=== PATIENT | male | born 1970 | race Caucasian/White ===

== ENCOUNTER 2020-11-19 14:07 | Emergency (ER) | payer OTHER ==
[~2020-11-19] VITALS: Ht 177.8 cm; Wt 79.4 kg
[2020-11-19] MEDS ORDERED: FAMO20 PO (14:30)
[2020-11-19] MEDS ORDERED: METO10 PO (14:30)
== END 2020-11-19 14:31 | disposition home or self-care (01) ==
LOC: ER 14:07
DX: K20.90 Esophagitis, unspecified without bleeding (principal); Z88.0 Allergy status to penicillin; Z79.899 Other long term (current) drug therapy
CPT/HCPCS: 99283